=== PATIENT | female | born 1930 | race African-American/Black ===

== ENCOUNTER 2016-09-09 08:20 | Inpatient (IN) | payer MEDICARE, MEDICAID ==
[~2016-09-09] VITALS: Ht 154.9 cm; Wt 67.6 kg
[~2016-09-09 08:20] MED LIST: ALBU18HF2; AMLO5TAB88; CLOP75TA33; GABA-531; OMEP20CA4; ROSU10TA
[2016-09-09] MEDS ORDERED: SODIUM CHLORIDE 0.9% 1,000 ML IV ONE (08:53)
[2016-09-09] MEDS ORDERED: OXYCODONE HCL/ACETAMINOPHEN 5/325MG TABLET PO ONE (09:00)
[2016-09-09 09:15] LABS: BASOPHILS % 0.9 % (0.0-2.0); EOSINOPHILS % 0.5 % (0.0-5.0); HEMOGLOBIN. 12.9 g/dL (12.0-16.0); LYMPHOCYTES % 11.2 % (20.0-50.0); MEAN CORPUSCULAR HEMOGLOBIN 30.2 pg (28.0-32.0); MEAN CORPUSCULAR VOLUME 91.3 fL (81.0-99.0); MEAN PLATELET VOLUME 7.8 fl (7.4-10.4); NEUTROPHILS % 80.4 % (40.0-76.0); PLATELET 300 x1000/uL (130-400); RED BLOOD CELL COUNT 4.27 mill/uL (4.2-5.4); RED CELL DISTRIBUTION WIDTH 12.1 % (11.6-14.6); WHITE BLOOD COUNT 8.4 x1000/uL (4.5-11.0)
[2016-09-09 09:24] LABS: INR 1.2
[2016-09-09 09:30] LABS: ALANINE AMINOTRANSFERASE 22 IU/L (13-61); ALBUMIN 3.8 g/dL (3.4-5.0); ANION GAP 18; CALCIUM 8.6 mg/dL (8.5-10.1); CARBON DIOXIDE 20 mEq/L (21-32); CHLORIDE 103 mEq/L (98-107); INDEX HEMOLYSI 1 (1-3); INDEX ICTERIC 1 (1-4); INDEX LIPEMIC 1 (1-3); LIPASE 271 IU/L (73-393); UREA NITROGEN BLOOD 55 mg/dL (7-21); eGFR 8 mL/min (>60)
[2016-09-09 09:43] LABS: CLARITY URINE CLEAR (CLEAR); COLOR URINE YELLOW (YELLOW); GLUCOSE URINE NEGATIVE (NEGATIVE); KETONES URINE NEGATIVE (NEGATIVE); LEUKOCYTE ESTERASE URINE 1+ (NEGATIVE); NITRITE URINE NEGATIVE (NEGATIVE); OCCULT BLOOD URINE 3+ (NEGATIVE); PROTEIN URINE TRACE (NEGATIVE); SPECIFIC GRAVITY URINE 1.016 (1.005-1.030); UROBILINOGEN URINE 0.2 E.U./dL (0.2-1.0)
[2016-09-09 10:17] LABS: RBC URINE TNTC /hpf (0-2)
[2016-09-09 10:18] LABS: BACTERIA URINE TRACE; SQUAMOUS EPITHELIAL CELL URINE FEW /lpf (RARE/1+)
[2016-09-09] MEDS ORDERED: ONDANSETRON HCL 4MG/2ML VIAL IV ONE (11:45)
[2016-09-09] MEDS ORDERED: MORPHINE SULFATE 2 MG/ML CPJ (NOT FOR IM USE) IV ONE (11:45)
[2016-09-09] MEDS ORDERED: ACETAMINOPHEN 325MG TABLET PO PRN (13:30)
[2016-09-09] MEDS ORDERED: ONDANSETRON HCL 4MG/2ML VIAL IV PRN (13:30)
[2016-09-09] MEDS ORDERED: IPRATROPIUM/ALBUTEROL 0.5-3(2.5)MG/3ML NEB INH PRN (13:30)
[2016-09-09] MEDS ORDERED: HYDROCODONE/ACETAMINOPHEN 5/325MG TABLET PO PRN (13:30)
[2016-09-09 14:49] VITALS: BP 178/77
[2016-09-09] MEDS: SODIUM CHLORIDE 0.9% 1,000 ML IV SCH (15:31)
[2016-09-09] MEDS: CLONIDINE 0.1MG TABLET PO PRN (15:34)
[2016-09-09 16:00] VITALS: BP 127/61
[2016-09-09 20:00] VITALS: BP 115/65
[2016-09-09] MEDS: HYDROMORPHONE HCL/PF 2MG/ML CPJ IV PRN (21:51)
[2016-09-09] MEDS: ZOLPIDEM TARTRATE 5MG TABLET PO PRN (23:32)
[2016-09-10] VITALS: BP 128/77
[2016-09-10] MEDS: SODIUM CHLORIDE 0.9% 1,000 ML IV SCH ×2 (02:05→17:25)
[2016-09-10 04:00] VITALS: BP 131/63
[2016-09-10 07:18] LABS: EOSINOPHILS % 3.2 % (0.0-5.0); HEMATOCRIT. 34.2 % (36.0-48.0); HEMOGLOBIN. 11.2 g/dL (12.0-16.0); LYMPHOCYTES % 26.3 % (20.0-50.0); MEAN CORPUSCULAR HEMOGLOBIN 29.8 pg (28.0-32.0); MEAN CORPUSCULAR HGB CONC 32.7 g/dL (31.0-37.0); MEAN PLATELET VOLUME 8.1 fl (7.4-10.4); MONOCYTES % 11.8 % (2.0-8.0); NEUTROPHILS % 57.7 % (40.0-76.0); PLATELET 268 x1000/uL (130-400); RED BLOOD CELL COUNT 3.76 mill/uL (4.2-5.4); WHITE BLOOD COUNT 6.3 x1000/uL (4.5-11.0)
[2016-09-10 07:45] VITALS: BP 152/64
[2016-09-10 08:07] LABS: ALANINE AMINOTRANSFERASE 20 IU/L (13-61); ALBUMIN 2.9 g/dL (3.4-5.0); ANION GAP 12; CALCIUM 8.5 mg/dL (8.5-10.1); CARBON DIOXIDE 23 mEq/L (21-32); CHLORIDE 111 mEq/L (98-107); CREATINE KINASE 98 IU/L (26-192); INDEX HEMOLYSI 1 (1-3); INDEX ICTERIC 1 (1-4); INDEX LIPEMIC 1 (1-3); UREA NITROGEN BLOOD 46 mg/dL (7-21); URIC ACID 6.4 mg/dL (2.6-7.2); eGFR 12 mL/min (>60)
[2016-09-10 11:53] VITALS: BP 137/66
[2016-09-10] MEDS: HYDROMORPHONE HCL/PF 2MG/ML CPJ IV PRN ×2 (12:03→21:25)
[2016-09-10 16:00] VITALS: BP 145/76
[2016-09-10 20:00] VITALS: BP 168/82
[2016-09-10] MEDS: ZOLPIDEM TARTRATE 5MG TABLET PO PRN (22:54)
[2016-09-11] VITALS: BP 159/95
[2016-09-11 04:00] VITALS: BP 144/80
[2016-09-11] MEDS: SODIUM CHLORIDE 0.9% 1,000 ML IV SCH (06:27)
[2016-09-11 06:59] LABS: BASOPHILS % 0.8 % (0.0-2.0); EOSINOPHILS % 2.7 % (0.0-5.0); HEMATOCRIT. 36.3 % (36.0-48.0); HEMOGLOBIN. 12.1 g/dL (12.0-16.0); LYMPHOCYTES % 27.7 % (20.0-50.0); MEAN CORPUSCULAR HEMOGLOBIN 30.5 pg (28.0-32.0); MEAN CORPUSCULAR HGB CONC 33.4 g/dL (31.0-37.0); MEAN CORPUSCULAR VOLUME 91.3 fL (81.0-99.0); MEAN PLATELET VOLUME 7.7 fl (7.4-10.4); NEUTROPHILS % 58.8 % (40.0-76.0); PLATELET 275 x1000/uL (130-400); RED BLOOD CELL COUNT 3.98 mill/uL (4.2-5.4); RED CELL DISTRIBUTION WIDTH 12.1 % (11.6-14.6); WHITE BLOOD COUNT 6.8 x1000/uL (4.5-11.0)
[2016-09-11 07:36] LABS: ALANINE AMINOTRANSFERASE 19 IU/L (13-61); ALBUMIN 3.1 g/dL (3.4-5.0); ANION GAP 11; CALCIUM 8.4 mg/dL (8.5-10.1); CARBON DIOXIDE 24 mEq/L (21-32); CHLORIDE 110 mEq/L (98-107); INDEX HEMOLYSI 1 (1-3); INDEX ICTERIC 1 (1-4); INDEX LIPEMIC 1 (1-3); MAGNESIUM 1.5 mg/dL (1.8-2.4); UREA NITROGEN BLOOD 30 mg/dL (7-21); eGFR 23 mL/min (>60)
[2016-09-11 08:00] VITALS: BP 168/73
[2016-09-11] MEDS: HYDROMORPHONE HCL/PF 2MG/ML CPJ IV PRN (09:36)
[2016-09-11] MEDS: CLONIDINE 0.1MG TABLET PO PRN (09:36)
[2016-09-11] MEDS ORDERED: AMLODIPINE 5MG TABLET PO SCH (10:15)
[2016-09-11 12:00] VITALS: BP 129/80
[2016-09-11 16:00] VITALS: BP 142/72
[2016-09-11 17:07] VITALS: BP 129/80
== END 2016-09-11 18:03 | disposition home or self-care (01) | DRG 684 ==
LOC: ER 08:43 → 8WST 11:10
PROVIDERS: ADMIT Internal Medicine; ATTEND Internal Medicine
DX: N17.0 Acute kidney failure with tubular necrosis (principal); E86.1 Hypovolemia; J44.9 Chronic obstructive pulmonary disease, unspecified; E78.5 Hyperlipidemia, unspecified; I25.10 Atherosclerotic heart disease of native coronary artery without angina pectoris; N18.9 Chronic kidney disease, unspecified; Z90.710 Acquired absence of both cervix and uterus; I12.9 Hypertensive chronic kidney disease with stage 1 through stage 4 chronic kidney disease, or unspecified chronic kidney disease; M19.90 Unspecified osteoarthritis, unspecified site; E78.00 Pure hypercholesterolemia, unspecified; K21.9 Gastro-esophageal reflux disease without esophagitis; Z88.8 Allergy status to other drugs, medicaments and biological substances; Z95.5 Presence of coronary angioplasty implant and graft; Z79.899 Other long term (current) drug therapy
CPT/HCPCS: 36415; 74176; 76700; 80053; 81001; 82550; 83605; 83615; 83690; 83735; 84550; 85025; 85610; 87086; 93005; 96361; 96374; 97162; 99285; J1170; J2270; J2405; J7030

== ENCOUNTER 2017-09-18 15:21 | Observation (INO) | payer MEDICARE, MEDICAID ==
[~2017-09-18] VITALS: Ht 154.9 cm; Wt 67.1 kg
[~2017-09-18 15:21] MED LIST changes: -AMLO5TAB88; +AMLO5TAB88 PO; -CLOP75TA33; +CLOP75TA33 PO; -GABA-531; +GABA-531 PO; -OMEP20CA4; -ROSU10TA; +ROSU10TA PO
[2017-09-18 18:55] LABS: BASOPHILS % 1.1 % (0.0-2.0); EOSINOPHILS % 1.5 % (0.0-5.0); HEMATOCRIT. 37.2 % (36.0-48.0); HEMOGLOBIN. 12.4 g/dL (12.0-16.0); LYMPHOCYTES % 43.2 % (20.0-50.0); MEAN CORPUSCULAR HEMOGLOBIN 29.9 pg (28.0-32.0); MEAN CORPUSCULAR VOLUME 89.6 fL (81.0-99.0); MEAN PLATELET VOLUME 7.6 fl (7.4-10.4); MONOCYTES % 8.4 % (2.0-8.0); NEUTROPHILS % 45.8 % (40.0-76.0); PLATELET 326 x1000/uL (130-400); RED BLOOD CELL COUNT 4.15 mill/uL (4.2-5.4); RED CELL DISTRIBUTION WIDTH 12.2 % (11.6-14.6)
[2017-09-18 19:05] LABS: INR 1.1; PROTHROMBIN TIME 11.3 sec (9.4-11.6)
[2017-09-18 19:06] LABS: CHLORIDE 106 mEq/L (98-107)
[2017-09-18] MEDS ORDERED: MORPHINE SULFATE 4 MG/ML CPJ (NOT FOR IM USE) IV STA (19:06)
[2017-09-18] MEDS ORDERED: ONDANSETRON HCL 4MG/2ML VIAL IV STA (19:06)
[2017-09-18] MEDS ORDERED: ASPIRIN 81MG TABLET PO ONE (19:15)
[2017-09-19 02:50] VITALS: BP 172/66
[2017-09-19 04:00] VITALS: BP 172/66
[2017-09-19] MEDS ORDERED: TEMAZEPAM 15MG CAPSULE PO PRN (04:00)
[2017-09-19] MEDS: HYDROCODONE/ACETAMINOPHEN 5/325MG TABLET PO PRN ×3 (06:02→20:56)
[2017-09-19] MEDS: PANTOPRAZOLE 40MG DR TABLET PO SCH (06:02)
[2017-09-19 08:00] VITALS: BP 143/43
[2017-09-19] MEDS: CLOPIDOGREL 75MG TABLET PO SCH (08:46)
[2017-09-19] MEDS: GABAPENTIN 300MG CAPSULE PO SCH ×3 (08:48→17:16)
[2017-09-19] MEDS: AMLODIPINE 5MG TABLET PO SCH (08:49)
[2017-09-19] MEDS: ENOXAPARIN 40MG/0.4ML SYR SUBCUT SCH (08:50)
[2017-09-19] MEDS: ATENOLOL 50 MG TABLET PO SCH (08:51)
[2017-09-19] MEDS ORDERED: MEDICATION NOT ON FORMULARY EA (Rosuvastatin Calcium (Crestor) 10 MG) PO SCH (09:00)
[2017-09-19 10:25] LABS: CREATINE KINASE 87 IU/L (26-192); CREATINE KINASE MB FRACTION 1.2 ng/mL (0.5-3.6)
[2017-09-19 12:00] VITALS: BP 124/47
[2017-09-19] MEDS ORDERED: OMEP20CA10 PO (14:27)
[2017-09-19] MEDS ORDERED: ONDANSETRON HCL 4MG/2ML VIAL IV PRN (14:30)
[2017-09-19 15:49] LABS: CREATINE KINASE 88 IU/L (26-192); CREATINE KINASE MB FRACTION 1.3 ng/mL (0.5-3.6)
[2017-09-19 16:00] VITALS: BP 131/52
[2017-09-19] MEDS ORDERED: REGADENOSON 0.4 MG/5 ML IV SCH (16:15)
[2017-09-19 20:00] VITALS: BP 139/52
[2017-09-19] MEDS ORDERED: ATORVASTATIN CALCIUM 20MG TABLET PO SCH (21:00)
[2017-09-20] VITALS: BP 134/54
[2017-09-20 00:13] LABS: CREATINE KINASE 80 IU/L (26-192)
[2017-09-20] MEDS: PANTOPRAZOLE 40MG DR TABLET PO SCH (06:31)
[2017-09-20 07:07] LABS: BASOPHILS % 0.5 % (0.0-2.0); EOSINOPHILS % 2.2 % (0.0-5.0); HEMATOCRIT. 35.4 % (36.0-48.0); LYMPHOCYTES % 43.6 % (20.0-50.0); MEAN CORPUSCULAR VOLUME 88.7 fL (81.0-99.0); MEAN PLATELET VOLUME 7.8 fl (7.4-10.4); NEUTROPHILS % 44.7 % (40.0-76.0); PLATELET 305 x1000/uL (130-400); RED BLOOD CELL COUNT 3.99 mill/uL (4.2-5.4)
[2017-09-20 07:37] LABS: CHLORIDE 108 mEq/L (98-107)
[2017-09-20] MEDS: HYDROCODONE/ACETAMINOPHEN 5/325MG TABLET PO PRN ×2 (07:37→13:23)
[2017-09-20 08:00] VITALS: BP 130/67
[2017-09-20] MEDS: GABAPENTIN 300MG CAPSULE PO SCH ×2 (09:31→13:19)
[2017-09-20] MEDS: ATENOLOL 50 MG TABLET PO SCH (09:31)
[2017-09-20] MEDS: CLOPIDOGREL 75MG TABLET PO SCH (09:31)
[2017-09-20] MEDS: ENOXAPARIN 40MG/0.4ML SYR SUBCUT SCH (09:32)
[2017-09-20] MEDS: AMLODIPINE 5MG TABLET PO SCH (09:32)
[2017-09-20] MEDS ORDERED: REGADENOSON 0.4 MG/5 ML IV ONE (10:49)
[2017-09-20 12:00] VITALS: BP 143/57
[2017-09-20 13:56] VITALS: BP 125/78
[2017-09-20] MEDS ORDERED: SODIUM CHLORIDE 0.9% 10ML VIAL ONE (15:00)
== END 2017-09-20 15:00 | disposition home or self-care (01) ==
LOC: ER 16:27 → INTOOBSV 09-19 01:04 → 5WST 09-19 01:04 → EDBEDREQTM 09-19 01:05 → EDBEDREQ 09-19 01:05 → ENRESERV 09-19 01:44
PROVIDERS: ADMIT Internal Medicine; ATTEND Internal Medicine
DX: R07.89 Other chest pain (principal); I25.10 Atherosclerotic heart disease of native coronary artery without angina pectoris; I10 Essential (primary) hypertension; E78.00 Pure hypercholesterolemia, unspecified; E78.5 Hyperlipidemia, unspecified; K21.9 Gastro-esophageal reflux disease without esophagitis; Z79.899 Other long term (current) drug therapy; Z82.49 Family history of ischemic heart disease and other diseases of the circulatory system; Z90.710 Acquired absence of both cervix and uterus
CPT/HCPCS: 36415; 71045; 78452; 80048; 80053; 82550; 82553; 83735; 83880; 84484; 85025; 85379; 85610; 93005; 93017; 93306; 93971; 96372; 96374; 96375; 99285; A4216; A9500; G0378; J1650; J2270; J2405; J2785

== ENCOUNTER 2021-02-22 10:24 | Inpatient (IN) | payer MEDICARE, MEDICAID ==
[~2021-02-22] VITALS: Ht 154.9 cm; Wt 57.2 kg
[~2021-02-22 10:24] MED LIST changes: +CRES10 PO; -GABA-531 PO; +GABA-532 PO; +OMEP20CA14 PO; -ROSU10TA PO
[2021-02-22 11:41] LABS: HEMATOCRIT. 36.8 % (36.0-48.0); HEMOGLOBIN. 12.3 g/dL (12.0-16.0); MEAN CORPUSCULAR HEMOGLOBIN 30.8 pg (28.0-32.0); MEAN CORPUSCULAR VOLUME 91.7 fL (81.0-99.0); MEAN PLATELET VOLUME 7.1 fl (7.4-10.4); PLATELET 383 x1000/uL (130-400); RED BLOOD CELL COUNT 4.01 mill/uL (4.2-5.4); RED CELL DISTRIBUTION WIDTH 12.3 % (11.6-14.6)
[2021-02-22 11:48] LABS: CHLORIDE 110 mEq/L (98-107)
[2021-02-22 12:24] LABS: PLATELET ESTIMATE NORMAL
[2021-02-22] MEDS ORDERED: NA PHOS,M-B/NA PHOS,DI-BA ENEMA 118ML PR PRN (15:00)
[2021-02-22] MEDS ORDERED: ONDANSETRON HCL 4MG/2ML INJ IV PRN (15:00)
[2021-02-22] MEDS ORDERED: HYDROCODONE/ACETAMINOPHEN 5/325MG TABLET PO PRN (15:00)
[2021-02-22] MEDS ORDERED: MAGNESIUM/ALUMINUM HYDROXIDE/SIMETHICONE 30ML UDC PO PRN (15:00)
[2021-02-22] MEDS ORDERED: ACETAMINOPHEN 650MG SUPP PR PRN (15:00)
[2021-02-22] MEDS ORDERED: GUAIFENESIN 200MG/10ML SUGAR FREE UDC PO PRN (15:00)
[2021-02-22] MEDS ORDERED: DEXTROSE 50% WATER 50ML SYRINGE IV PRN (15:00)
[2021-02-22] MEDS ORDERED: LORAZEPAM 0.5MG TABLET PO PRN (15:00)
[2021-02-22] MEDS ORDERED: AZITHROMYCIN 500 MG in DEXT 5% WATER 250 ML IV NR (15:30)
[2021-02-22] MEDS ORDERED: CEFTRIAXONE 1 G PREMIX 50 ML IV NR (15:30)
[2021-02-22 16:23] LABS: BG BASE EXCESS -0.8 mmol/L (-2.0-2.0); BG CARBOXYHEMOGLOBIN 0.3 % (0.5-1.5); BG DEOXYHEMOGLOBIN 0.1 % (0.0-5.0); BG HCO3 ACT 22.5 mmol/L (22.0-26.0); BG METHEMOGLOBIN 0.5 % (0.0-1.5); BG OXYGEN SATURATION 99.9 % (92.0-98.5); BG OXYHEMOGLOBIN 99.1 % (94.0-97.0); BG PH 7.451 (7.350-7.450); BG PO2 397.6 mmHg (75.0-100.0); BG SAMPLE SITE RIGHT BRACHIAL; BG TOTAL HEMOGLOBIN 12.5 g/dL (12.0-18.0); BG VENT MODE MASK - BIPAP
[2021-02-22 16:34] LABS: CLARITY URINE CLEAR (CLEAR); COLOR URINE YELLOW (YELLOW); KETONES URINE NEGATIVE (NEGATIVE); LEUKOCYTE ESTERASE URINE 1+ (NEGATIVE); NITRITE URINE NEGATIVE (NEGATIVE); OCCULT BLOOD URINE NEGATIVE (NEGATIVE); PROTEIN URINE 2+ (NEGATIVE); SPECIFIC GRAVITY URINE 1.019 (1.005-1.030)
[2021-02-22] MEDS: ENOXAPARIN 30MG/0.3ML SYR SUBCUT SCH (16:52)
[2021-02-22 17:16] LABS: D-DIMER 2.32 mg/L FEU (<0.50); PROTHROMBIN TIME 11.1 sec (9.6-11.0)
[2021-02-22] MEDS: DEXAMETHASONE 4MG TABLET PO SCH (17:20)
[2021-02-22] MEDS ORDERED: DEXAMETHASONE 10 MG/ML VIAL IV SCH (18:00)
[2021-02-22] MEDS: BLOOD SUGAR DIAGNOSTIC STRIP TEST SCH ×2 (19:30→21:53)
[2021-02-22] MEDS: INSULIN LISPRO 100 UNITS/ML SUBCUT SCH ×2 (19:35→21:00)
[2021-02-22] MEDS: FAMOTIDINE 20MG TABLET PO SCH (21:59)
[2021-02-23] MEDS: CLONIDINE 0.1MG TABLET PO PRN (00:40)
[2021-02-23 02:03] VITALS: BP 178/80
[2021-02-23 07:01] LABS: CHLORIDE 110 mEq/L (98-107)
[2021-02-23 07:09] LABS: HDL CHOLESTEROL 64 mg/dL (40-59); LDL CHOLESTEROL 116 mg/dL (5-100)
[2021-02-23 07:10] LABS: T4 FREE 1.37 ng/dL (0.76-1.46)
[2021-02-23 07:23] LABS: HEMATOCRIT. 37.8 % (36.0-48.0); HEMOGLOBIN. 12.2 g/dL (12.0-16.0); MEAN CORPUSCULAR VOLUME 92.7 fL (81.0-99.0); RED BLOOD CELL COUNT 4.08 mill/uL (4.2-5.4); RED CELL DISTRIBUTION WIDTH 12.5 % (11.6-14.6)
[2021-02-23] MEDS: BLOOD SUGAR DIAGNOSTIC STRIP TEST SCH ×4 (07:40→21:00)
[2021-02-23 08:00] VITALS: BP 123/66
[2021-02-23] MEDS: DEXAMETHASONE 4MG TABLET PO SCH (09:34)
[2021-02-23] MEDS: INSULIN LISPRO 100 UNITS/ML SUBCUT SCH ×4 (09:35→22:32)
[2021-02-23 12:00] VITALS: BP 125/65
[2021-02-23 12:53] LABS: BG BASE EXCESS 0.4 mmol/L (-2.0-2.0); BG CARBOXYHEMOGLOBIN 0.1 % (0.5-1.5); BG DEOXYHEMOGLOBIN 9.5 % (0.0-5.0); BG FRACTION INSPIRED OXYGEN 99.9; BG HCO3 ACT 23.5 mmol/L (22.0-26.0); BG METHEMOGLOBIN 0.4 % (0.0-1.5); BG OXYGEN SATURATION 90.5 % (92.0-98.5); BG PO2 57.6 mmHg (75.0-100.0); BG SAMPLE SITE RIGHT BRACHIAL; BG TOTAL HEMOGLOBIN 12.4 g/dL (12.0-18.0); BG VENT MODE MASK - NRB
[2021-02-23 13:58] LABS: MEAN PLATELET VOLUME 7.6 fl (7.4-10.4); PLATELET ESTIMATE SLIGHTLY INCREASED
[2021-02-23 13:59] LABS: PLATELET 402 x1000/uL (130-400)
[2021-02-23 16:00] VITALS: BP 146/68
[2021-02-23] MEDS: ENOXAPARIN 30MG/0.3ML SYR SUBCUT SCH (18:02)
[2021-02-23 20:00] VITALS: BP_SYST 116; BP_SYST 158; BP_DIAS 51; BP_DIAS 69
[2021-02-23] MEDS: FAMOTIDINE 20MG TABLET PO SCH (22:32)
[2021-02-23] MEDS ORDERED: NALOXONE HCL 0.4MG/ML VIAL IV PRN (23:00)
[2021-02-24] VITALS: BP 166/74
[2021-02-24] MEDS: CLONIDINE 0.1MG TABLET PO PRN (01:54)
[2021-02-24 04:00] VITALS: BP 153/66
[2021-02-24 06:09] LABS: HEMATOCRIT. 37.1 % (36.0-48.0); MEAN CORPUSCULAR HEMOGLOBIN 30.3 pg (28.0-32.0); MEAN CORPUSCULAR VOLUME 93.3 fL (81.0-99.0); MEAN PLATELET VOLUME 7.5 fl (7.4-10.4); PLATELET 500 x1000/uL (130-400); RED BLOOD CELL COUNT 3.98 mill/uL (4.2-5.4); RED CELL DISTRIBUTION WIDTH 12.5 % (11.6-14.6)
[2021-02-24 07:56] LABS: BG BASE EXCESS -2.6 mmol/L (-2.0-2.0); BG CARBOXYHEMOGLOBIN 0.3 % (0.5-1.5); BG DEOXYHEMOGLOBIN 3.7 % (0.0-5.0); BG HCO3 ACT 20.9 mmol/L (22.0-26.0); BG METHEMOGLOBIN 0.2 % (0.0-1.5); BG OXYGEN SATURATION 96.3 % (92.0-98.5); BG OXYHEMOGLOBIN 95.8 % (94.0-97.0); BG PCO2 32.1 mmHg (35.0-45.0); BG PH 7.431 (7.350-7.450); BG PO2 88.5 mmHg (75.0-100.0); BG SAMPLE SITE RIGHT BRACHIAL; BG VENT MODE MASK - NRB
[2021-02-24] MEDS: BLOOD SUGAR DIAGNOSTIC STRIP TEST SCH ×4 (08:12→20:47)
[2021-02-24] MEDS: INSULIN LISPRO 100 UNITS/ML SUBCUT SCH ×4 (08:12→20:47)
[2021-02-24] MEDS: DEXAMETHASONE 4MG TABLET PO SCH (09:41)
[2021-02-24 09:59] LABS: PLATELET ESTIMATE INCREASED
[2021-02-24 12:00] VITALS: BP 135/72
[2021-02-24 16:00] VITALS: BP 118/67
[2021-02-24] MEDS: ENOXAPARIN 30MG/0.3ML SYR SUBCUT SCH (16:42)
[2021-02-24 20:00] VITALS: BP 135/86
[2021-02-24] MEDS: FAMOTIDINE 20MG TABLET PO SCH (20:46)
[2021-02-25 00:18] VITALS: BP 144/66
[2021-02-25 04:00] VITALS: BP 167/60
[2021-02-25] MEDS: ACETAMINOPHEN 325MG TABLET PO PRN ×3 (05:45→18:27)
[2021-02-25] MEDS: CLONIDINE 0.1MG TABLET PO PRN ×2 (05:46→21:31)
[2021-02-25 07:08] LABS: HEMATOCRIT. 34.9 % (36.0-48.0); HEMOGLOBIN. 11.7 g/dL (12.0-16.0); MEAN CORPUSCULAR HEMOGLOBIN 29.8 pg (28.0-32.0); MEAN CORPUSCULAR VOLUME 89.3 fL (81.0-99.0); MEAN PLATELET VOLUME 7.5 fl (7.4-10.4); PLATELET 633 x1000/uL (130-400); RED BLOOD CELL COUNT 3.91 mill/uL (4.2-5.4); RED CELL DISTRIBUTION WIDTH 12.2 % (11.6-14.6)
[2021-02-25] MEDS: BLOOD SUGAR DIAGNOSTIC STRIP TEST SCH ×4 (07:40→21:31)
[2021-02-25 08:00] VITALS: BP 125/75
[2021-02-25 08:11] LABS: BG BASE EXCESS -2.1 mmol/L (-2.0-2.0); BG CARBOXYHEMOGLOBIN 0.2 % (0.5-1.5); BG FRACTION INSPIRED OXYGEN 100; BG HCO3 ACT 20.4 mmol/L (22.0-26.0); BG METHEMOGLOBIN 0.3 % (0.0-1.5); BG OXYHEMOGLOBIN 93.5 % (94.0-97.0); BG PCO2 28.5 mmHg (35.0-45.0); BG PH 7.473 (7.350-7.450); BG PO2 70.2 mmHg (75.0-100.0); BG SAMPLE SITE RIGHT BRACHIAL; BG TOTAL HEMOGLOBIN 12.2 g/dL (12.0-18.0); BG VENT MODE MASK - NRB
[2021-02-25] MEDS: DEXAMETHASONE 4MG TABLET PO SCH (09:06)
[2021-02-25 09:14] LABS: PLATELET ESTIMATE INCREASED
[2021-02-25 12:00] VITALS: BP 156/63
[2021-02-25] MEDS: INSULIN LISPRO 100 UNITS/ML SUBCUT SCH ×4 (12:15→21:42)
[2021-02-25] MEDS: DEXAMETHASONE 10 MG/ML VIAL IV SCH (13:19)
[2021-02-25] MEDS: ALBUTEROL 6.7GM HFA INHALER ORI SCH ×2 (15:33→18:47)
[2021-02-25 16:00] VITALS: BP 155/66
[2021-02-25] MEDS: ENOXAPARIN 30MG/0.3ML SYR SUBCUT SCH (17:11)
[2021-02-25 20:00] VITALS: BP 168/75
[2021-02-25] MEDS: FAMOTIDINE 20MG TABLET PO SCH (21:31)
[2021-02-26] VITALS: BP 155/51
[2021-02-26] MEDS: ALBUTEROL 6.7GM HFA INHALER ORI SCH ×4 (00:27→17:52)
[2021-02-26 04:00] VITALS: BP 156/67
[2021-02-26] MEDS: ACETAMINOPHEN 325MG TABLET PO PRN ×2 (05:46→11:52)
[2021-02-26 07:48] LABS: HEMATOCRIT. 34.5 % (36.0-48.0); HEMOGLOBIN. 11.6 g/dL (12.0-16.0); MEAN CORPUSCULAR VOLUME 89.2 fL (81.0-99.0); MEAN PLATELET VOLUME 7.4 fl (7.4-10.4); PLATELET 627 x1000/uL (130-400); RED BLOOD CELL COUNT 3.87 mill/uL (4.2-5.4); RED CELL DISTRIBUTION WIDTH 12.1 % (11.6-14.6)
[2021-02-26] MEDS: BLOOD SUGAR DIAGNOSTIC STRIP TEST SCH ×4 (07:50→21:08)
[2021-02-26 07:56] VITALS: BP 147/65
[2021-02-26] MEDS: INSULIN LISPRO 100 UNITS/ML SUBCUT SCH ×4 (08:29→21:08)
[2021-02-26] MEDS: DEXAMETHASONE 10 MG/ML VIAL IV SCH (09:38)
[2021-02-26 10:44] LABS: PLATELET ESTIMATE INCREASED
[2021-02-26 12:00] VITALS: BP 154/75
[2021-02-26 15:55] VITALS: BP 159/66
[2021-02-26] MEDS: ENOXAPARIN 30MG/0.3ML SYR SUBCUT SCH (17:01)
[2021-02-26 20:00] VITALS: BP 112/65
[2021-02-26] MEDS: FAMOTIDINE 20MG TABLET PO SCH (21:09)
[2021-02-27] VITALS: BP 104/66
[2021-02-27] MEDS: ALBUTEROL 6.7GM HFA INHALER ORI SCH ×4 (00:45→17:47)
[2021-02-27 04:00] VITALS: BP 152/72
[2021-02-27] MEDS: BLOOD SUGAR DIAGNOSTIC STRIP TEST SCH ×4 (06:17→20:59)
[2021-02-27 07:48] VITALS: BP 162/70
[2021-02-27] MEDS: DEXAMETHASONE 10 MG/ML VIAL IV SCH (08:22)
[2021-02-27] MEDS: CLONIDINE 0.1MG TABLET PO PRN (08:22)
[2021-02-27] MEDS: INSULIN LISPRO 100 UNITS/ML SUBCUT SCH ×4 (08:24→20:59)
[2021-02-27 11:44] VITALS: BP 148/67
[2021-02-27 15:46] VITALS: BP 142/86
[2021-02-27] MEDS: ENOXAPARIN 30MG/0.3ML SYR SUBCUT SCH (17:30)
[2021-02-27 20:00] VITALS: BP 126/72
[2021-02-27] MEDS: FAMOTIDINE 20MG TABLET PO SCH (20:59)
[2021-02-28] VITALS (7 sets, daily range): BP systolic 126–174; BP diastolic 59–85
[2021-02-28] MEDS: ALBUTEROL 6.7GM HFA INHALER ORI SCH ×4 (00:42→17:50)
[2021-02-28 01:41] LABS: HEMATOCRIT. 38.4 % (36.0-48.0); HEMOGLOBIN. 12.9 g/dL (12.0-16.0); MEAN CORPUSCULAR HEMOGLOBIN 29.9 pg (28.0-32.0); RED BLOOD CELL COUNT 4.32 mill/uL (4.2-5.4); RED CELL DISTRIBUTION WIDTH 12.2 % (11.6-14.6)
[2021-02-28 03:17] LABS: PLATELET 402 x1000/uL (130-400)
[2021-02-28 05:02] LABS: PLATELET ESTIMATE NORMAL
[2021-02-28] MEDS: CLONIDINE 0.1MG TABLET PO PRN (05:44)
[2021-02-28] MEDS: BLOOD SUGAR DIAGNOSTIC STRIP TEST SCH ×4 (05:44→21:03)
[2021-02-28] MEDS: INSULIN LISPRO 100 UNITS/ML SUBCUT SCH ×4 (07:17→21:07)
[2021-02-28 07:22] LABS: HEMATOCRIT. 32.8 % (36.0-48.0); HEMOGLOBIN. 10.9 g/dL (12.0-16.0); MEAN CORPUSCULAR HEMOGLOBIN 29.5 pg (28.0-32.0); MEAN CORPUSCULAR VOLUME 88.8 fL (81.0-99.0); PLATELET 450 x1000/uL (130-400); RED BLOOD CELL COUNT 3.69 mill/uL (4.2-5.4); RED CELL DISTRIBUTION WIDTH 12.2 % (11.6-14.6)
[2021-02-28] MEDS: DEXAMETHASONE 10 MG/ML VIAL IV SCH (09:03)
[2021-02-28 10:27] LABS: BG BASE EXCESS -2.7 mmol/L (-2.0-2.0); BG CARBOXYHEMOGLOBIN 0.3 % (0.5-1.5); BG DEOXYHEMOGLOBIN 16.4 % (0.0-5.0); BG HCO3 ACT 20.4 mmol/L (22.0-26.0); BG METHEMOGLOBIN 0.2 % (0.0-1.5); BG OXYGEN SATURATION 83.5 % (92.0-98.5); BG OXYHEMOGLOBIN 83.1 % (94.0-97.0); BG PCO2 30.3 mmHg (35.0-45.0); BG PH 7.446 (7.350-7.450); BG PO2 45.7 mmHg (75.0-100.0); BG SAMPLE SITE RIGHT RADIAL; BG TOTAL HEMOGLOBIN 12.1 g/dL (12.0-18.0); BG VENT MODE MASK - NRB
[2021-02-28] MEDS ORDERED: POTASSIUM CHLORIDE 20MEQ TABLET SR PO NR (11:00)
[2021-02-28 13:45] LABS: BG BASE EXCESS -5.2 mmol/L (-2.0-2.0); BG CARBOXYHEMOGLOBIN 0.3 % (0.5-1.5); BG DEOXYHEMOGLOBIN 4.6 % (0.0-5.0); BG FRACTION INSPIRED OXYGEN 100; BG HCO3 ACT 18.7 mmol/L (22.0-26.0); BG METHEMOGLOBIN 0.1 % (0.0-1.5); BG OXYGEN SATURATION 95.4 % (92.0-98.5); BG PCO2 31.4 mmHg (35.0-45.0); BG PH 7.393 (7.350-7.450); BG PO2 82.5 mmHg (75.0-100.0); BG SAMPLE SITE RIGHT RADIAL; BG TOTAL HEMOGLOBIN 11.8 g/dL (12.0-18.0); BG VENT MODE MASK - BIPAP
[2021-02-28] MEDS: ENOXAPARIN 30MG/0.3ML SYR SUBCUT SCH (17:49)
[2021-02-28 19:30] LABS: PLATELET ESTIMATE INCREASED
[2021-02-28] MEDS: FAMOTIDINE 20MG TABLET PO SCH (21:05)
[2021-02-28] MEDS: DIPHENHYDRAMINE 50MG/ML VIAL IV PRN (21:06)
[2021-03-01] VITALS: BP 159/78
[2021-03-01] MEDS: ALBUTEROL 6.7GM HFA INHALER ORI SCH ×3 (01:33→13:19)
[2021-03-01 04:00] VITALS: BP 175/81
[2021-03-01] MEDS: DIPHENHYDRAMINE 50MG/ML VIAL IV PRN (04:26)
[2021-03-01] MEDS: CLONIDINE 0.1MG TABLET PO PRN ×2 (04:44→16:45)
[2021-03-01] MEDS: INSULIN LISPRO 100 UNITS/ML SUBCUT SCH ×4 (07:02→21:22)
[2021-03-01] MEDS: BLOOD SUGAR DIAGNOSTIC STRIP TEST SCH ×4 (07:02→21:21)
[2021-03-01 08:00] VITALS: BP 157/66
[2021-03-01] MEDS: DEXAMETHASONE 10 MG/ML VIAL IV SCH (09:09)
[2021-03-01 09:19] LABS: HEMATOCRIT. 32.2 % (36.0-48.0); HEMOGLOBIN. 10.5 g/dL (12.0-16.0); MEAN CORPUSCULAR VOLUME 88.8 fL (81.0-99.0); MEAN PLATELET VOLUME 6.9 fl (7.4-10.4); PLATELET 400 x1000/uL (130-400); RED BLOOD CELL COUNT 3.62 mill/uL (4.2-5.4); RED CELL DISTRIBUTION WIDTH 12.1 % (11.6-14.6)
[2021-03-01 09:26] LABS: BG BASE EXCESS -3.9 mmol/L (-2.0-2.0); BG CARBOXYHEMOGLOBIN 0.3 % (0.5-1.5); BG DEOXYHEMOGLOBIN 1.8 % (0.0-5.0); BG FRACTION INSPIRED OXYGEN 100; BG METHEMOGLOBIN 0.1 % (0.0-1.5); BG OXYGEN SATURATION 98.2 % (92.0-98.5); BG OXYHEMOGLOBIN 97.8 % (94.0-97.0); BG PCO2 32.7 mmHg (35.0-45.0); BG PH 7.405 (7.350-7.450); BG PO2 111.3 mmHg (75.0-100.0); BG SAMPLE SITE RIGHT RADIAL; BG TOTAL HEMOGLOBIN 11.5 g/dL (12.0-18.0); BG VENT MODE MASK - BIPAP
[2021-03-01 12:00] VITALS: BP 153/67
[2021-03-01] MEDS: IVERMECTIN 3 MG TABLET PO SCH (13:19)
[2021-03-01] MEDS ORDERED: HYDROCODONE/ACETAMINOPHEN 5/325MG TABLET PO PRN (14:15)
[2021-03-01] MEDS: IPRATROPIUM/ALBUTEROL 0.5-3(2.5)MG/3ML NEB HHN SCH (15:27)
[2021-03-01 16:00] VITALS: BP 173/74
[2021-03-01] MEDS: ENOXAPARIN 30MG/0.3ML SYR SUBCUT SCH (16:45)
[2021-03-01 18:09] LABS: PLATELET ESTIMATE NORMAL
[2021-03-01 20:00] VITALS: BP 152/63
[2021-03-01] MEDS: ACETAMINOPHEN 325MG TABLET PO PRN (21:22)
[2021-03-01] MEDS: FAMOTIDINE 20MG TABLET PO SCH (21:22)
[2021-03-01] MEDS: CEFEPIME 1,000 MG in DEXTROSE 5% WATER 50 ML IV SCH (23:41)
[2021-03-02] VITALS: BP 126/57
[2021-03-02 04:00] VITALS: BP 163/70
[2021-03-02] MEDS: CLONIDINE 0.1MG TABLET PO PRN (05:44)
[2021-03-02 07:34] LABS: HEMATOCRIT. 33.2 % (36.0-48.0); HEMOGLOBIN. 10.9 g/dL (12.0-16.0); MEAN CORPUSCULAR HEMOGLOBIN 29.5 pg (28.0-32.0); MEAN PLATELET VOLUME 7.6 fl (7.4-10.4); PLATELET 364 x1000/uL (130-400); RED BLOOD CELL COUNT 3.69 mill/uL (4.2-5.4); RED CELL DISTRIBUTION WIDTH 12.4 % (11.6-14.6)
[2021-03-02] MEDS: BLOOD SUGAR DIAGNOSTIC STRIP TEST SCH ×4 (07:38→20:51)
[2021-03-02] MEDS: INSULIN LISPRO 100 UNITS/ML SUBCUT SCH ×4 (07:39→20:51)
[2021-03-02 08:53] LABS: PLATELET ESTIMATE NORMAL
[2021-03-02] MEDS: IVERMECTIN 3 MG TABLET PO SCH (09:11)
[2021-03-02] MEDS: DEXAMETHASONE 10 MG/ML VIAL IV SCH (09:12)
[2021-03-02 10:38] LABS: BG BASE EXCESS -4.7 mmol/L (-2.0-2.0); BG CARBOXYHEMOGLOBIN 0.3 % (0.5-1.5); BG DEOXYHEMOGLOBIN 1.8 % (0.0-5.0); BG FRACTION INSPIRED OXYGEN 80; BG HCO3 ACT 19.8 mmol/L (22.0-26.0); BG METHEMOGLOBIN 0.2 % (0.0-1.5); BG OXYGEN SATURATION 98.2 % (92.0-98.5); BG OXYHEMOGLOBIN 97.7 % (94.0-97.0); BG PCO2 34.5 mmHg (35.0-45.0); BG PH 7.376 (7.350-7.450); BG PO2 117.6 mmHg (75.0-100.0); BG SAMPLE SITE RIGHT BRACHIAL; BG TOTAL HEMOGLOBIN 11.6 g/dL (12.0-18.0); BG TOTAL RESPIRATORY RATE 30 b/min; BG VENT MODE MASK - BIPAP
[2021-03-02] MEDS: CEFEPIME 1,000 MG in DEXTROSE 5% WATER 50 ML IV SCH (10:47)
[2021-03-02 12:00] VITALS: BP 141/66
[2021-03-02 16:00] VITALS: BP 161/67
[2021-03-02] MEDS: ENOXAPARIN 30MG/0.3ML SYR SUBCUT SCH (17:29)
[2021-03-02 20:34] VITALS: BP 164/71
[2021-03-02] MEDS: ACETAMINOPHEN 325MG TABLET PO PRN (21:33)
[2021-03-02] MEDS: FAMOTIDINE 20MG TABLET PO SCH (21:33)
[2021-03-03] MEDS: CEFEPIME 1,000 MG in DEXTROSE 5% WATER 50 ML IV SCH ×3 (00:12→22:17)
[2021-03-03 00:19] VITALS: BP 152/66
[2021-03-03 04:00] VITALS: BP 148/64
[2021-03-03] MEDS: BLOOD SUGAR DIAGNOSTIC STRIP TEST SCH ×4 (07:21→20:59)
[2021-03-03] MEDS: INSULIN LISPRO 100 UNITS/ML SUBCUT SCH ×4 (07:22→20:58)
[2021-03-03 08:00] VITALS: BP 169/69
[2021-03-03] MEDS: IVERMECTIN 3 MG TABLET PO SCH (08:23)
[2021-03-03] MEDS: DEXAMETHASONE 4MG/ML 1ML VIAL IV SCH (08:23)
[2021-03-03 08:41] LABS: HEMATOCRIT. 31.8 % (36.0-48.0); HEMOGLOBIN. 10.6 g/dL (12.0-16.0); MEAN CORPUSCULAR HEMOGLOBIN 29.8 pg (28.0-32.0); MEAN CORPUSCULAR VOLUME 89.6 fL (81.0-99.0); MEAN PLATELET VOLUME 7.3 fl (7.4-10.4); PLATELET 341 x1000/uL (130-400); RED BLOOD CELL COUNT 3.55 mill/uL (4.2-5.4); RED CELL DISTRIBUTION WIDTH 12.3 % (11.6-14.6)
[2021-03-03 10:18] LABS: PLATELET ESTIMATE NORMAL
[2021-03-03 10:46] LABS: BG BASE EXCESS -5.8 mmol/L (-2.0-2.0); BG CARBOXYHEMOGLOBIN 0.3 % (0.5-1.5); BG DEOXYHEMOGLOBIN 13.3 % (0.0-5.0); BG FRACTION INSPIRED OXYGEN 60; BG HCO3 ACT 17.6 mmol/L (22.0-26.0); BG METHEMOGLOBIN 0.2 % (0.0-1.5); BG OXYGEN SATURATION 86.6 % (92.0-98.5); BG OXYHEMOGLOBIN 86.2 % (94.0-97.0); BG PCO2 28.3 mmHg (35.0-45.0); BG PH 7.411 (7.350-7.450); BG PO2 51.5 mmHg (75.0-100.0); BG SAMPLE SITE LEFT RADIAL; BG TOTAL HEMOGLOBIN 11.4 g/dL (12.0-18.0); BG VENT MODE MASK - SIMPLE
[2021-03-03 12:00] VITALS: BP 106/67
[2021-03-03] MEDS ORDERED: LIDOCAINE HCL 1% 20ML VIAL (Pyxis) INJ ONE (14:23)
[2021-03-03] MEDS: MEGESTROL ACETATE 400 MG/10 ML UDC PO SCH (15:15)
[2021-03-03] MEDS: ENOXAPARIN 30MG/0.3ML SYR SUBCUT SCH (15:15)
[2021-03-03 16:00] VITALS: BP 143/58
[2021-03-03 20:00] VITALS: BP 136/61
[2021-03-03] MEDS: FAMOTIDINE 20MG TABLET PO SCH (20:58)
[2021-03-03] MEDS: DIPHENHYDRAMINE 50MG/ML VIAL IV PRN (20:59)
[2021-03-04] VITALS: BP 123/65
[2021-03-04] MEDS: DIPHENHYDRAMINE 50MG/ML VIAL IV PRN ×2 (00:56→21:15)
[2021-03-04 04:00] VITALS: BP 160/58
[2021-03-04 07:19] LABS: HEMATOCRIT. 29.9 % (36.0-48.0); MEAN CORPUSCULAR HEMOGLOBIN 29.2 pg (28.0-32.0); MEAN CORPUSCULAR VOLUME 87.6 fL (81.0-99.0); MEAN PLATELET VOLUME 7.9 fl (7.4-10.4); PLATELET 336 x1000/uL (130-400); RED BLOOD CELL COUNT 3.42 mill/uL (4.2-5.4); RED CELL DISTRIBUTION WIDTH 12.3 % (11.6-14.6)
[2021-03-04 07:24] LABS: CHLORIDE 113 mEq/L (98-107)
[2021-03-04 08:00] VITALS: BP 152/67
[2021-03-04] MEDS: INSULIN LISPRO 100 UNITS/ML SUBCUT SCH ×4 (08:10→21:00)
[2021-03-04] MEDS: BLOOD SUGAR DIAGNOSTIC STRIP TEST SCH ×4 (08:20→21:15)
[2021-03-04] MEDS: IVERMECTIN 3 MG TABLET PO SCH (08:21)
[2021-03-04] MEDS: DEXAMETHASONE 4MG/ML 1ML VIAL IV SCH (08:21)
[2021-03-04] MEDS: MEGESTROL ACETATE 400 MG/10 ML UDC PO SCH ×2 (08:21→08:32)
[2021-03-04 09:34] LABS: BG BASE EXCESS -6.2 mmol/L (-2.0-2.0); BG CARBOXYHEMOGLOBIN 0.3 % (0.5-1.5); BG DEOXYHEMOGLOBIN 8.6 % (0.0-5.0); BG FRACTION INSPIRED OXYGEN 100; BG HCO3 ACT 17.3 mmol/L (22.0-26.0); BG METHEMOGLOBIN 0.2 % (0.0-1.5); BG OXYGEN SATURATION 91.4 % (92.0-98.5); BG OXYHEMOGLOBIN 90.9 % (94.0-97.0); BG PCO2 28.4 mmHg (35.0-45.0); BG PH 7.403 (7.350-7.450); BG PO2 62.3 mmHg (75.0-100.0); BG SAMPLE SITE RIGHT RADIAL; BG TOTAL HEMOGLOBIN 11.3 g/dL (12.0-18.0); BG VENT MODE MASK - NRB
[2021-03-04] MEDS: CEFEPIME 1,000 MG in DEXTROSE 5% WATER 50 ML IV SCH ×2 (11:13→22:16)
[2021-03-04 12:00] VITALS: BP 138/74
[2021-03-04 13:40] LABS: PLATELET ESTIMATE NORMAL
[2021-03-04 16:00] VITALS: BP 133/55
[2021-03-04] MEDS: ENOXAPARIN 30MG/0.3ML SYR SUBCUT SCH (17:04)
[2021-03-04 20:00] VITALS: BP 152/73
[2021-03-04] MEDS: FAMOTIDINE 20MG TABLET PO SCH (21:15)
[2021-03-04] MEDS: ACETAMINOPHEN 325MG TABLET PO PRN (22:28)
[2021-03-05] VITALS: BP 152/63
[2021-03-05 04:00] VITALS: BP 185/85
[2021-03-05] MEDS: CLONIDINE 0.1MG TABLET PO PRN (04:58)
[2021-03-05] MEDS: INSULIN LISPRO 100 UNITS/ML SUBCUT SCH ×4 (07:51→21:08)
[2021-03-05] MEDS: BLOOD SUGAR DIAGNOSTIC STRIP TEST SCH ×4 (07:51→21:06)
[2021-03-05 08:00] VITALS: BP 171/73
[2021-03-05] MEDS: MEGESTROL ACETATE 400 MG/10 ML UDC PO SCH (09:02)
[2021-03-05] MEDS: IVERMECTIN 3 MG TABLET PO SCH (09:02)
[2021-03-05] MEDS: DEXAMETHASONE 4MG/ML 1ML VIAL IV SCH (09:09)
[2021-03-05] MEDS: AMLODIPINE 5MG TABLET PO SCH (11:30)
[2021-03-05] MEDS: CEFEPIME 1,000 MG in DEXTROSE 5% WATER 50 ML IV SCH ×2 (11:30→22:07)
[2021-03-05] MEDS: DOCUSATE SODIUM 100MG CAPSULE PO PRN (11:31)
[2021-03-05 12:00] VITALS: BP 152/79
[2021-03-05 16:00] VITALS: BP 150/73
[2021-03-05] MEDS: ENOXAPARIN 30MG/0.3ML SYR SUBCUT SCH (16:59)
[2021-03-05 20:00] VITALS: BP 125/72
[2021-03-05] MEDS: FAMOTIDINE 20MG TABLET PO SCH (21:06)
[2021-03-05] MEDS: DIPHENHYDRAMINE 50MG/ML VIAL IV PRN (21:10)
[2021-03-06] VITALS (7 sets, daily range): BP systolic 125–166; BP diastolic 68–93
[2021-03-06 06:26] LABS: HEMATOCRIT. 32.6 % (36.0-48.0); MEAN CORPUSCULAR HEMOGLOBIN 29.3 pg (28.0-32.0); MEAN CORPUSCULAR VOLUME 87.1 fL (81.0-99.0); MEAN PLATELET VOLUME 7.6 fl (7.4-10.4); PLATELET 354 x1000/uL (130-400); RED BLOOD CELL COUNT 3.74 mill/uL (4.2-5.4); RED CELL DISTRIBUTION WIDTH 12.6 % (11.6-14.6)
[2021-03-06 07:08] LABS: CHLORIDE 114 mEq/L (98-107)
[2021-03-06] MEDS: INSULIN LISPRO 100 UNITS/ML SUBCUT SCH ×4 (08:09→21:24)
[2021-03-06] MEDS: BLOOD SUGAR DIAGNOSTIC STRIP TEST SCH ×4 (08:09→21:20)
[2021-03-06] MEDS: DEXAMETHASONE 4MG/ML 1ML VIAL IV SCH (08:54)
[2021-03-06] MEDS: AMLODIPINE 5MG TABLET PO SCH (08:55)
[2021-03-06] MEDS: MEGESTROL ACETATE 400 MG/10 ML UDC PO SCH (08:56)
[2021-03-06 10:32] LABS: BG BASE EXCESS -6.6 mmol/L (-2.0-2.0); BG CARBOXYHEMOGLOBIN 0.3 % (0.5-1.5); BG DEOXYHEMOGLOBIN 8.6 % (0.0-5.0); BG FRACTION INSPIRED OXYGEN 100; BG HCO3 ACT 16.4 mmol/L (22.0-26.0); BG METHEMOGLOBIN 0.3 % (0.0-1.5); BG OXYGEN SATURATION 91.3 % (92.0-98.5); BG OXYHEMOGLOBIN 90.8 % (94.0-97.0); BG PCO2 25.7 mmHg (35.0-45.0); BG PH 7.422 (7.350-7.450); BG SAMPLE SITE RIGHT BRACHIAL; BG TOTAL HEMOGLOBIN 11.9 g/dL (12.0-18.0); BG VENT MODE MASK - NRB
[2021-03-06] MEDS ORDERED: POTASSIUM CHLORIDE 20MEQ TABLET SR PO NR (11:15)
[2021-03-06] MEDS: CEFEPIME 1,000 MG in DEXTROSE 5% WATER 50 ML IV SCH ×2 (11:50→23:52)
[2021-03-06] MEDS: ACETAMINOPHEN 325MG TABLET PO PRN (11:51)
[2021-03-06] MEDS: IPRATROPIUM/ALBUTEROL 0.5-3(2.5)MG/3ML NEB HHN SCH ×3 (14:46→20:26)
[2021-03-06] MEDS: DIPHENHYDRAMINE 50MG/ML VIAL IV PRN (15:56)
[2021-03-06] MEDS: ENOXAPARIN 30MG/0.3ML SYR SUBCUT SCH (16:50)
[2021-03-06] MEDS: MORPHINE SULFATE 2 MG/ML CPJ (NOT FOR IM USE) IV PRN ×2 (17:44→22:30)
[2021-03-06] MEDS: FAMOTIDINE 20MG TABLET PO SCH (21:20)
[2021-03-06 22:10] LABS: CREATINE KINASE 66 IU/L (26-192)
[2021-03-06 22:12] LABS: CREATINE KINASE MB FRACTION 2.4 ng/mL (0.5-3.6)
[2021-03-07] VITALS (12 sets, daily range): BP systolic 114–160; BP diastolic 55–88
[2021-03-07] MEDS: IPRATROPIUM/ALBUTEROL 0.5-3(2.5)MG/3ML NEB HHN SCH ×6 (00:41→22:00)
[2021-03-07 02:45] LABS: PLATELET ESTIMATE NORMAL
[2021-03-07] MEDS: BLOOD SUGAR DIAGNOSTIC STRIP TEST SCH ×4 (06:53→21:54)
[2021-03-07] MEDS: INSULIN LISPRO 100 UNITS/ML SUBCUT SCH ×4 (08:02→22:39)
[2021-03-07] MEDS: MEGESTROL ACETATE 400 MG/10 ML UDC PO SCH (08:54)
[2021-03-07] MEDS: DEXAMETHASONE 4MG/ML 1ML VIAL IV SCH (08:55)
[2021-03-07] MEDS: AMLODIPINE 5MG TABLET PO SCH (08:55)
[2021-03-07] MEDS: MORPHINE SULFATE 2 MG/ML CPJ (NOT FOR IM USE) IV PRN ×2 (11:03→18:29)
[2021-03-07 11:58] LABS: BG BASE EXCESS -7.3 mmol/L (-2.0-2.0); BG CARBOXYHEMOGLOBIN 0.3 % (0.5-1.5); BG DEOXYHEMOGLOBIN 3.1 % (0.0-5.0); BG FRACTION INSPIRED OXYGEN 99.8; BG METHEMOGLOBIN 0.2 % (0.0-1.5); BG OXYGEN SATURATION 96.9 % (92.0-98.5); BG OXYHEMOGLOBIN 96.4 % (94.0-97.0); BG PCO2 26.1 mmHg (35.0-45.0); BG PH 7.405 (7.350-7.450); BG PO2 93.4 mmHg (75.0-100.0); BG SAMPLE SITE LEFT RADIAL; BG TOTAL HEMOGLOBIN 11.8 g/dL (12.0-18.0); BG VENT MODE MASK - NRB
[2021-03-07] MEDS: DILTIAZEM HCL 30MG TABLET PO SCH ×2 (14:15→21:53)
[2021-03-07 14:49] LABS: HEMATOCRIT. 31.1 % (36.0-48.0); MEAN CORPUSCULAR HEMOGLOBIN 28.8 pg (28.0-32.0); MEAN CORPUSCULAR VOLUME 89.6 fL (81.0-99.0); MEAN PLATELET VOLUME 7.6 fl (7.4-10.4); PLATELET 340 x1000/uL (130-400); RED BLOOD CELL COUNT 3.47 mill/uL (4.2-5.4)
[2021-03-07 14:57] LABS: CHLORIDE 115 mEq/L (98-107)
[2021-03-07] MEDS: ENOXAPARIN 30MG/0.3ML SYR SUBCUT SCH (17:33)
[2021-03-07 17:46] LABS: PLATELET ESTIMATE NORMAL
[2021-03-07] MEDS: FAMOTIDINE 20MG TABLET PO SCH (21:54)
[2021-03-08] VITALS (10 sets, daily range): BP systolic 126–153; BP diastolic 59–88
[2021-03-08] MEDS: IPRATROPIUM/ALBUTEROL 0.5-3(2.5)MG/3ML NEB HHN SCH ×6 (01:30→20:20)
[2021-03-08] MEDS: DILTIAZEM HCL 30MG TABLET PO SCH ×3 (06:48→21:14)
[2021-03-08] MEDS: INSULIN LISPRO 100 UNITS/ML SUBCUT SCH ×4 (07:20→21:13)
[2021-03-08] MEDS: BLOOD SUGAR DIAGNOSTIC STRIP TEST SCH ×4 (07:45→21:14)
[2021-03-08] MEDS: MEGESTROL ACETATE 400 MG/10 ML UDC PO SCH (08:38)
[2021-03-08] MEDS: DEXAMETHASONE 4MG/ML 1ML VIAL IV SCH (08:38)
[2021-03-08] MEDS: MORPHINE SULFATE 2 MG/ML CPJ (NOT FOR IM USE) IV PRN (08:39)
[2021-03-08 12:04] LABS: HEMATOCRIT. 29.6 % (36.0-48.0); HEMOGLOBIN. 9.7 g/dL (12.0-16.0); MEAN CORPUSCULAR HEMOGLOBIN 29.1 pg (28.0-32.0); MEAN CORPUSCULAR VOLUME 88.5 fL (81.0-99.0); MEAN PLATELET VOLUME 7.8 fl (7.4-10.4); PLATELET 294 x1000/uL (130-400); RED BLOOD CELL COUNT 3.34 mill/uL (4.2-5.4); RED CELL DISTRIBUTION WIDTH 13.4 % (11.6-14.6)
[2021-03-08 12:18] LABS: CHLORIDE 114 mEq/L (98-107)
[2021-03-08] MEDS ORDERED: MORPHINE SULFATE 2 MG/ML CPJ (NOT FOR IM USE) IV PRN (13:45)
[2021-03-08] MEDS ORDERED: HYDROCODONE/APAP 7.5/325MG 1 TAB TABLET PO PRN (16:30)
[2021-03-08] MEDS ORDERED: IOHEXOL-350 100 ML BOTTLE ONE (17:37)
[2021-03-08 17:44] LABS: PLATELET ESTIMATE NORMAL
[2021-03-08] MEDS: ENOXAPARIN 30MG/0.3ML SYR SUBCUT SCH (17:48)
[2021-03-08] MEDS: FAMOTIDINE 20MG TABLET PO SCH (21:14)
[2021-03-09] VITALS (12 sets, daily range): BP systolic 109–174; BP diastolic 38–94
[2021-03-09] MEDS: IPRATROPIUM/ALBUTEROL 0.5-3(2.5)MG/3ML NEB HHN SCH ×5 (04:15→21:14)
[2021-03-09] MEDS: DILTIAZEM HCL 30MG TABLET PO SCH ×3 (06:00→21:14)
[2021-03-09] MEDS: BLOOD SUGAR DIAGNOSTIC STRIP TEST SCH ×4 (06:16→20:28)
[2021-03-09 07:15] LABS: HEMATOCRIT. 31.8 % (36.0-48.0); HEMOGLOBIN. 10.4 g/dL (12.0-16.0); MEAN CORPUSCULAR HEMOGLOBIN 29.5 pg (28.0-32.0); MEAN CORPUSCULAR VOLUME 89.9 fL (81.0-99.0); MEAN PLATELET VOLUME 8.2 fl (7.4-10.4); PLATELET 312 x1000/uL (130-400); RED BLOOD CELL COUNT 3.53 mill/uL (4.2-5.4); RED CELL DISTRIBUTION WIDTH 13.4 % (11.6-14.6)
[2021-03-09] MEDS: INSULIN LISPRO 100 UNITS/ML SUBCUT SCH ×4 (07:20→21:17)
[2021-03-09 07:51] LABS: CHLORIDE 113 mEq/L (98-107)
[2021-03-09] MEDS: MEGESTROL ACETATE 400 MG/10 ML UDC PO SCH (08:07)
[2021-03-09] MEDS: DEXAMETHASONE 4MG/ML 1ML VIAL IV SCH (08:07)
[2021-03-09] MEDS: DIPHENHYDRAMINE 50MG/ML VIAL IV PRN (11:38)
[2021-03-09] MEDS: MORPHINE SULFATE 2 MG/ML CPJ (NOT FOR IM USE) IV PRN (11:48)
[2021-03-09] MEDS: GABAPENTIN 100MG CAPSULE PO SCH ×3 (12:08→23:19)
[2021-03-09] MEDS: CLONIDINE 0.1MG TABLET PO PRN (13:22)
[2021-03-09] MEDS ORDERED: HYDROCODONE/APAP 7.5/325MG 1 TAB TABLET PO PRN (16:30)
[2021-03-09] MEDS ORDERED: HYDROCODONE/ACETAMINOPHEN 10/325MG TABLET PO PRN (16:30)
[2021-03-09] MEDS: ENOXAPARIN 30MG/0.3ML SYR SUBCUT SCH (17:48)
[2021-03-09] MEDS: DOCUSATE SODIUM 100MG CAPSULE PO PRN (17:48)
[2021-03-09 19:16] LABS: BG CARBOXYHEMOGLOBIN 0.3 % (0.5-1.5); BG DEOXYHEMOGLOBIN 17.5 % (0.0-5.0); BG FRACTION INSPIRED OXYGEN 40; BG HCO3 ACT 18.3 mmol/L (22.0-26.0); BG METHEMOGLOBIN 0.2 % (0.0-1.5); BG OXYGEN SATURATION 82.4 % (92.0-98.5); BG PCO2 28.3 mmHg (35.0-45.0); BG PH 7.428 (7.350-7.450); BG PO2 46.9 mmHg (75.0-100.0); BG SAMPLE SITE LEFT BRACHIAL; BG TOTAL HEMOGLOBIN 10.7 g/dL (12.0-18.0); BG VENT MODE MASK - SIMPLE
[2021-03-09 19:40] LABS: PLATELET ESTIMATE NORMAL
[2021-03-09] MEDS: FAMOTIDINE 20MG TABLET PO SCH (21:14)
[2021-03-10] VITALS (10 sets, daily range): BP systolic 108–148; BP diastolic 54–100
[2021-03-10] MEDS: IPRATROPIUM/ALBUTEROL 0.5-3(2.5)MG/3ML NEB HHN SCH ×6 (00:32→21:30)
[2021-03-10] MEDS: BLOOD SUGAR DIAGNOSTIC STRIP TEST SCH ×4 (06:08→21:10)
[2021-03-10] MEDS: GABAPENTIN 100MG CAPSULE PO SCH ×3 (06:09→18:23)
[2021-03-10] MEDS: DILTIAZEM HCL 30MG TABLET PO SCH ×3 (06:09→22:58)
[2021-03-10] MEDS: INSULIN LISPRO 100 UNITS/ML SUBCUT SCH ×4 (08:54→21:28)
[2021-03-10] MEDS: DEXAMETHASONE 4MG/ML 1ML VIAL IV SCH (08:54)
[2021-03-10] MEDS: MEGESTROL ACETATE 400 MG/10 ML UDC PO SCH (08:54)
[2021-03-10] MEDS: MORPHINE SULFATE 2 MG/ML CPJ (NOT FOR IM USE) IV PRN (08:56)
[2021-03-10 10:34] LABS: HEMATOCRIT. 29.7 % (36.0-48.0); HEMOGLOBIN. 9.8 g/dL (12.0-16.0); MEAN CORPUSCULAR VOLUME 87.5 fL (81.0-99.0); MEAN PLATELET VOLUME 7.3 fl (7.4-10.4); PLATELET 278 x1000/uL (130-400); RED CELL DISTRIBUTION WIDTH 12.8 % (11.6-14.6)
[2021-03-10] MEDS ORDERED: MORPHINE SULFATE 2 MG/ML CPJ (NOT FOR IM USE) IV NR (10:45)
[2021-03-10 10:48] LABS: CHLORIDE 113 mEq/L (98-107)
[2021-03-10 10:59] LABS: BG BASE EXCESS -5.2 mmol/L (-2.0-2.0); BG CARBOXYHEMOGLOBIN 0.3 % (0.5-1.5); BG DEOXYHEMOGLOBIN 14.8 % (0.0-5.0); BG HCO3 ACT 18.4 mmol/L (22.0-26.0); BG METHEMOGLOBIN 0.5 % (0.0-1.5); BG OXYGEN SATURATION 85.1 % (92.0-98.5); BG OXYHEMOGLOBIN 84.4 % (94.0-97.0); BG PCO2 29.7 mmHg (35.0-45.0); BG PH 7.409 (7.350-7.450); BG PO2 52.8 mmHg (75.0-100.0); BG SAMPLE SITE RIGHT RADIAL; BG TOTAL HEMOGLOBIN 11.4 g/dL (12.0-18.0); BG VENT MODE MASK - NRB
[2021-03-10] MEDS ORDERED: HYDROMORPHONE HCL/PF 2MG/ML CPJ IV NR (11:00)
[2021-03-10] MEDS ORDERED: MORPHINE SULFATE 2 MG/ML CPJ (NOT FOR IM USE) IV PRN (13:45)
[2021-03-10 14:15] LABS: PLATELET ESTIMATE NORMAL
[2021-03-10] MEDS: MORPHINE SULFATE 4 MG/ML CPJ (NOT FOR IM USE) IV PRN ×2 (14:56→18:41)
[2021-03-10] MEDS ORDERED: POTASSIUM CHLORIDE INJ 40 MEQ in DEXT 5% WATER 250 ML IV NR (16:00)
[2021-03-10] MEDS: ENOXAPARIN 30MG/0.3ML SYR SUBCUT SCH (16:33)
[2021-03-10] MEDS ORDERED: MORPHINE SULFATE 4 MG/ML CPJ (NOT FOR IM USE) IV PRN (17:45)
[2021-03-10] MEDS: FAMOTIDINE 20MG TABLET PO SCH (21:22)
[2021-03-11] VITALS (8 sets, daily range): BP systolic 118–142; BP diastolic 40–86
[2021-03-11] MEDS ORDERED: DEXT 5%/0.45% NACL 1000ML 1,000 ML IV SCH
[2021-03-11] MEDS: IPRATROPIUM/ALBUTEROL 0.5-3(2.5)MG/3ML NEB HHN SCH ×5 (00:31→15:27)
[2021-03-11] MEDS: BLOOD SUGAR DIAGNOSTIC STRIP TEST SCH ×3 (05:53→16:31)
[2021-03-11] MEDS: DILTIAZEM HCL 30MG TABLET PO SCH ×2 (06:00→15:25)
[2021-03-11] MEDS: GABAPENTIN 100MG CAPSULE PO SCH ×3 (06:00→12:42)
[2021-03-11 06:51] LABS: CHLORIDE 113 mEq/L (98-107)
[2021-03-11] MEDS: INSULIN LISPRO 100 UNITS/ML SUBCUT SCH ×3 (07:20→18:03)
[2021-03-11] MEDS ORDERED: IODIXANOL 320MG/ML 100 ML BOTTLE IV ONE (08:47)
[2021-03-11] MEDS ORDERED: LIDOCAINE HCL 1% 20ML VIAL (Pyxis) INJ ONE (08:47)
[2021-03-11] MEDS ORDERED: MIDAZOLAM HCL 2 MG/2 ML VIAL ONE ×3 (08:52→09:52)
[2021-03-11] MEDS ORDERED: FENTANYL CITRATE/PF 50MCG/ML 2ML VIAL ONE ×3 (08:52→09:52)
[2021-03-11] MEDS: MEGESTROL ACETATE 400 MG/10 ML UDC PO SCH (09:00)
[2021-03-11] MEDS: DEXAMETHASONE 4MG/ML 1ML VIAL IV SCH (09:00)
[2021-03-11] MEDS ORDERED: HEPARIN SODIUM 1,000 UNIT/1ML VIAL IV ONE (09:14)
[2021-03-11] MEDS ORDERED: IOHEXOL-300 100 ML BOTTLE ONE (09:53)
[2021-03-11] MEDS ORDERED: PROTAMINE SULFATE 10MG/ML VIAL 5ML IV ONE (10:09)
[2021-03-11] MEDS ORDERED: CLOPIDOGREL 75MG TABLET PO SCH (10:15)
[2021-03-11 11:30] LABS: BG BASE EXCESS -5.3 mmol/L (-2.0-2.0); BG CARBOXYHEMOGLOBIN 0.2 % (0.5-1.5); BG DEOXYHEMOGLOBIN 5.1 % (0.0-5.0); BG FRACTION INSPIRED OXYGEN 100; BG HCO3 ACT 19.5 mmol/L (22.0-26.0); BG METHEMOGLOBIN 0.3 % (0.0-1.5); BG OXYGEN SATURATION 94.9 % (92.0-98.5); BG OXYHEMOGLOBIN 94.4 % (94.0-97.0); BG PCO2 35.5 mmHg (35.0-45.0); BG PH 7.358 (7.350-7.450); BG PO2 79.8 mmHg (75.0-100.0); BG SAMPLE SITE LEFT RADIAL; BG TOTAL HEMOGLOBIN 10.1 g/dL (12.0-18.0); BG VENT MODE MASK - CPAP
[2021-03-11 12:12] LABS: HEMOGLOBIN. 9.6 g/dL (12.0-16.0); MEAN CORPUSCULAR HEMOGLOBIN 29.1 pg (28.0-32.0); MEAN CORPUSCULAR VOLUME 91.2 fL (81.0-99.0); MEAN PLATELET VOLUME 7.3 fl (7.4-10.4); PLATELET 231 x1000/uL (130-400); RED BLOOD CELL COUNT 3.29 mill/uL (4.2-5.4); RED CELL DISTRIBUTION WIDTH 13.7 % (11.6-14.6)
[2021-03-11 13:39] LABS: PLATELET ESTIMATE NORMAL
[2021-03-11] MEDS: ENOXAPARIN 30MG/0.3ML SYR SUBCUT SCH (15:21)
[2021-03-23] MEDS ORDERED: BUPRENORPHINE 8MG SL TABLET SL ONE (14:00)
== END 2021-03-11 18:55 | DRG 853 ==
LOC: ER 10:24 → EDBEDREQ 14:53 → EDBEDREQTM 14:53 → MICUSO 20:32 → 7WST 22:02 → 3WST 03-06 13:51
PROVIDERS: ADMIT Internal Medicine; ATTEND Internal Medicine
PROC: 5A09557 Assistance with Respiratory Ventilation, Greater than 96 Consecutive Hours, Continuous Positive Airway Pressure (ICD-10-PCS; principal; 2021-02-22)
PROC: 5A09357 Assistance with Respiratory Ventilation, Less than 24 Consecutive Hours, Continuous Positive Airway Pressure (ICD-10-PCS; 2021-02-22)
PROC: B54MZZA Ultrasonography of Right Upper Extremity Veins, Guidance (ICD-10-PCS; 2021-03-03)
PROC: 05HY33Z Insertion of Infusion Device into Upper Vein, Percutaneous Approach (ICD-10-PCS; 2021-03-03)
PROC: 5A09357 Assistance with Respiratory Ventilation, Less than 24 Consecutive Hours, Continuous Positive Airway Pressure (ICD-10-PCS; 2021-03-07)
PROC: 5A09357 Assistance with Respiratory Ventilation, Less than 24 Consecutive Hours, Continuous Positive Airway Pressure (ICD-10-PCS; 2021-03-10)
PROC: 04CU3ZZ Extirpation of Matter from Left Peroneal Artery, Percutaneous Approach (ICD-10-PCS; 2021-03-11)
PROC: 04CN3ZZ Extirpation of Matter from Left Popliteal Artery, Percutaneous Approach (ICD-10-PCS; 2021-03-11)
PROC: 047U3ZZ Dilation of Left Peroneal Artery, Percutaneous Approach (ICD-10-PCS; 2021-03-11)
PROC: 047N3ZZ Dilation of Left Popliteal Artery, Percutaneous Approach (ICD-10-PCS; 2021-03-11)
PROC: B41G1ZZ Fluoroscopy of Left Lower Extremity Arteries using Low Osmolar Contrast (ICD-10-PCS; 2021-03-11)
DX: A41.89 Other specified sepsis (principal); U07.1 COVID-19; J12.82 Pneumonia due to coronavirus disease 2019; J96.01 Acute respiratory failure with hypoxia; I50.43 Acute on chronic combined systolic (congestive) and diastolic (congestive) heart failure; D68.59 Other primary thrombophilia; N39.0 Urinary tract infection, site not specified; T82.856A Stenosis of peripheral vascular stent, initial encounter; I13.0 Hypertensive heart and chronic kidney disease with heart failure and stage 1 through stage 4 chronic kidney disease, or unspecified chronic kidney disease; I74.3 Embolism and thrombosis of arteries of the lower extremities; E11.65 Type 2 diabetes mellitus with hyperglycemia; E78.5 Hyperlipidemia, unspecified; I11.0 Hypertensive heart disease with heart failure; I27.20 Pulmonary hypertension, unspecified; Y83.8 Other surgical procedures as the cause of abnormal reaction of the patient, or of later complication, without mention of misadventure at the time of the procedure; I25.10 Atherosclerotic heart disease of native coronary artery without angina pectoris; E78.00 Pure hypercholesterolemia, unspecified; E11.22 Type 2 diabetes mellitus with diabetic chronic kidney disease; N18.9 Chronic kidney disease, unspecified; E11.51 Type 2 diabetes mellitus with diabetic peripheral angiopathy without gangrene; E80.6 Other disorders of bilirubin metabolism; K21.9 Gastro-esophageal reflux disease without esophagitis; Z90.710 Acquired absence of both cervix and uterus; Y92.89 Other specified places as the place of occurrence of the external cause; Z79.02 Long term (current) use of antithrombotics/antiplatelets; Z79.899 Other long term (current) drug therapy; Z88.8 Allergy status to other drugs, medicaments and biological substances
CPT/HCPCS: 36415; 36600; 37224; 37229; 71045; 71250; 75635; 75710; 76937; 78580; 80048; 80053; 80061; 80076; 81003; 82375; 82550; 82553; 82728; 82805; 82962; 83036; 83605; 83615; 84145; 84439; 84443; 84484; 85025; 85347; 85379; 86141; 86850; 86900; 87426; 93005; 93306; 93923; 94640; 94660; 99291; C1725; C1760; C1769; C1885; C1887; C1893; C1894; J0456; J0692; J0696; J1100; J1170; J1200; J1644; J1650; J1815; J2250; J2270; J2720; J3010; J3480; J3490; J7040; J7060; J8540; Q9967; U0003; U0005